=== PATIENT | male | born 1960 | race Caucasian/White ===

== ENCOUNTER → 2020-05-21 07:35 | Outpatient (CLI) | payer OTHER, SELFPAY ==
--- NOTE | ~2020-05-21 | US_ITS ---
US abdomen limited DATE: 05/21/2020 08:16 INDICATION: Abnormal serum liver enzyme levels TECHNIQUE: Real-time and color flow imaging of the abdomen, Doppler analysis COMPARISON: None FINDINGS: No hepatic or pancreatic space-occupying mass lesion is evident. There is nonspecific mild thickening of the gallbladder wall, measuring under 3 mm thickness. No gallstones are evident. Negati ve sonographic Cornejo's sign. The common bile duct measures up to 4.3 mm, within normal range. No hepatic or pancreatic space-occupying mass lesion is detected. Normal hepatopedal portal venous fl ow. There is atherosclerotic plaque of the abdominal aorta. IMPRESSION: Nonspecific mild thickening of the gallbladder wall; no gallstones or bile duct dilatatio n. Negative sonographic Cornejo's sign Reviewed, dictated and finalized at [facility]. Reviewed, dictated and finalized at location B. IMPRESSION: Nonspecific mild thickening of the gallbladder wall; no gallstones or bile duct dilatation. Negative sonographic Cornejo's sign
== END ==
PROVIDERS: PCP Family Medicine; Visit Provider Physician Assistant
DX: R74.8 Abnormal levels of other serum enzymes (principal)
CPT/HCPCS: 76705

== ENCOUNTER 2022-07-03 07:36 | Outpatient (CLI) | payer OTHER, SELFPAY ==
--- NOTE | 2022-07-15 19:43 | WPDHOMESLEEP ---
Sleep Study - Home Unattended Date of Study: 07/03/22 Ordering Provider: Sandeep Herman DO Interpreting Provider: Veronica Stephenson MD Home Sleep Study Type: Watch PAT Height: 1.6 m Weight: 58.967 kg Body Mass Index: 23.0 Neck Circumference (inches): 14.5 [place]: 2 Reason for Sleep Study Snoring, daytime fatigue, non-restorative sleep. Sleep History Jason Mckeon is a 62-year-old man with snoring which is occasionally loud enough that others complain about it. He rarely awakens at night with heartburn, belching or coughing. He does not awaken from sleep feeling short of breath. He rarely has trouble sleeping with a cold. He does not wake up gasping for breath at night or have breathing problems at night observed by others. He occasionally sweats excessively at night. He rarely notices his heart pounding or beating irregularly at night. He does not fall asleep during the day, does not fall asleep involuntarily or while driving. He does not have loss of muscle tone with strong emotion. He does not have daytime difficulties due to excessive sleepiness. 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 He does not feel paralyzed on waking or falling asleep. He does not have vivid dreamlike scenes upon awakening or falling asleep. Does not feel afraid to go to sleep. He rarely has nightmares. He occasionally remembers his dreams. He frequently has racing thoughts. He does not feel sad or depressed. He occasionally has anxiety. He rarely has muscular tension. He does not notice parts of his body jerking. He occasionally kicks at night. He occasionally has crawling and aching feelings in his legs. He does not have leg pain at night. He denies morning jaw pain. Does not grind his teeth at night. He occasionally is bothered by pain during the day. He is not awakened by pain at night. He occasionally wakes up feeling stiff in the morning with sore achy muscles. He does not wake up with pain in the neck and spine. His medical history includes paroxysmal atrial fibrillation, hyperlipidemia, hypertension second-degree AV block and cigarette smoking. Normal bedtime is 9:30 p.m. falling asleep within 15-30 minutes, typically waking 2-3 times at night to use the bathroom. He returns to sleep within 10 minutes. He wakes in the morning at 5:15 a.m.. On the weekends, bedtime is later, 10:30 p.m. and he wakes between 6:00 and 7:00 a.m.. He does not generally take naps. A short nap lasting 10 or 15 minutes is not refreshing. He is drowsy after waking for 1 hour. He feels better in the morning compared to other times of day. He never awakens feeling refreshed. He occasionally has a morning headache. Habits: Tobacco half pack per day. Caffeine 1 serving a day. Alcohol 6-8 servings a day. No recreational drugs. [facility] Past Medical History Medical History Alcohol use Elevated liver enzymes Frequent urination H/O atrial fibrillation without current medication H/O stroke without residual deficits H/O: CVA (cerebrovascular accident) Hemiparesis of left nondominant side due to cerebral infarction HTN (hypertension) Hyperkalemia Hyperlipidemia IFG (impaired fasting glucose) Smoking Family History Family History Mother Patient's mother is in good health Patient's mother is Father Patient's father is Social History Social History Social History: Smoking packs per day: 1 Smoking cigarettes per day: 20.0 Years smoked: 30 Smoking pack-years: 30.00 Smoking status: Current every day smoker Tobacco type: cigarettes Second hand tobacco smoke exposure: Yes Smoking end date: 10/19/12 Alcohol intake: current Drinks per week: 42 Alcohol use details: Pt drinks roughly around 6 drinks a day. Substance use: never Substance use type: does not use Gender identity (if verbali
[2022-07-15 19:49] VITALS: BMI 23.0
== END 2022-07-09 11:22 | disposition home or self-care (01) ==
PROVIDERS: PCP Family Medicine; Visit Provider Internal Medicine Cardiovascular Disease
DX: G47.10 Hypersomnia, unspecified (principal); R06.3 Periodic breathing
CPT/HCPCS: 95800

== ENCOUNTER 2022-08-14 13:20 | Outpatient (CLI) | payer OTHER, SELFPAY ==
--- NOTE | 2022-08-14 13:30 | ECHO_ITS ---
Patient Info Name: Jason Mckeon Age: 62 years : 1960 Gender: Male Ht: 63 in Wt: 130 lbs BSA: 1.63 m2 HR: 59 bpm BP: 147 / 97 mmHg Technical Quality: Good Exam Date: 08/14/2022 2:32 PM Exam Location: [facility] Patient Status: Outpatient Admit Date: 08/14/2022 Staff Ordering Physician: Sandeep Herman DO Heating And Ventilating Tender: Ty Sánchez RDCS Attending Provider: Sandeep Herman DO Referring Physician: Virgil ELY; Exam Type: CA echo doppler color flow Study Info Indications - sick sinus syndrome Complete two-dimensional, color flow and Doppler transthoracic echocardiogram is performed. Summary 1. Complete two-dimensional, color flow and Doppler transthoracic echocardiogram is performed. 2. Left ventricular chamber dimension is normal. 3. Left ventricular systolic function is normal, estimated at 60-65%. 4. The left ventricular diastolic function is grade I diastolic dysfunction. 5. E/e' 7 is not elevated. 6. Left atrial chamber dimension is mildly enlarged. 7. Right atrial chamber dimension is mildly enlarged. 8. There is mild tricuspid valve regurgitation. 9. No pulmonary hypertension, estimated pulmonary arterial systolic pressure is 28 mmHg. Left Ventricle E/e' 7 is not elevated. Left ventricular chamber dimension is normal. Left ventricular systolic function is normal, estimated at 60-65%. The left ventricular diastolic function is grade I diastolic dysfunction. Right Ventricle Right ventricular systolic function is normal and with normal TAPSE 2.1 cm. Right ventricular chamber dimension is normal. Left Atria Left atrial chamber dimension is mildly enlarged. Right Atria Right atrial chamber dimension is mildly enlarged. Aortic Valve The aortic valve is trileaflet. There is no aortic valve stenosis. There is no aortic valve regurgitation. Pulmonic Valve There is no pulmonic regurgitation. Mitral Valve There is no mitral valve stenosis. There is no mitral valve regurgitation. Tricuspid Valve There is mild tricuspid valve regurgitation. No pulmonary hypertension, estimated pulmonary arterial systolic pressure is 28 mmHg. Pericardium/Pleural There is no pericardial effusion. Inferior Vena Cava Normal inferior vena cava with >50% collapse upon inspiration consistent with normal right atrial pressure, 5 mmHg. Aorta The aortic root size at the sinus of Valsalva is normal. Left Ventricular Outflow Tract Name Value Normal LVOT 2D LVOT Diameter 2.0 cm LVOT Doppler LVOT Peak Gradient 4 mmHg LVOT Mean Gradient 3 mmHg LVOT VTI 22 cm LVOT VTI/AV VTI Ratio 0.9 LVOT Stroke Volume 66 ml LVOT CO 4.5 l/min LVOT CI 2.7 l/min/m2 Mitral Valve Name Value Normal MV Do
== END 2022-08-14 13:21 | disposition home or self-care (01) ==
LOC: ANHCARD 13:20
PROVIDERS: PCP Family Medicine; Visit Provider Internal Medicine Cardiovascular Disease
DX: I49.5 Sick sinus syndrome (principal); I36.1 Nonrheumatic tricuspid (valve) insufficiency
CPT/HCPCS: 93306

== ENCOUNTER 2022-09-05 02:09 | Day surgery (SDC) | payer OTHER, SELFPAY ==
[2022-09-04 14:07] VITALS: BMI 22.9
[2022-09-05] VITALS (21 sets, daily range): BP systolic 133–171; BP diastolic 77–93; PULSE 67–85; RESP 10–20; TEMP 36.7–37.2; O2SAT 95–98; BMI 21.7
--- NOTE | ~2022-09-05 | XR_ITS ---
XR chest 1V portable DATE: 09/05/2022 11:29 INDICATION: Pacemaker insertion TECHNIQUE: Portable AP chest on 09/05/2022 1126 hours COMPARISON: 08/12/2014 portable AP chest FINDINGS: Left-sided transvenous pacemaker device is present with leads overlying right atrial and ri ght ventricle. Normal heart size. Mild aortic arch calcification, mild aortic unfolding. No hilar or mediastinal enlargement. No pulmonary infiltrate or consolidation, pleural effusion or pulmonary vascular congestion or pneumo thorax. IMPRESSION: Left dual-lead pacemaker No active cardiopulmonary disease Reviewed, dictated and finalized at [facility]. Reviewed, dictated and finalized at location B. UTER PILOT
--- NOTE | ~2022-09-05 | XR_ITS ---
EXAMINATION: XR chest 2V DATE: 09/06/2022 10:52 INDICATION: 24 hour postpacemaker insertion TECHNIQUE: PA and lateral views of the chest were obtained. COMPARISON: Chest radiograph dated 09/05/2022 FINDINGS: Trace bilateral pleural effusions with minimal blunting at the posterior sulci but not the costophren ic angles. Mild linear atelectasis at the right costophrenic angle and medial left lung base. No othe r airspace opacities, pulmonary edema or pneumothorax. The cardiomediastinal silhouette is normal. Du al lead pacemaker seen with leads projecting over the expected locations of the right atrium and righ t ventricle. IMPRESSION: 1. Mild bibasilar atelectasis and trace bilateral pleural effusions. Reviewed, dictated and finalized at location A. SE MACHINE OPERATOR HELPER
--- NOTE | 2022-09-05 07:30 | ECG_ITS ---
Measurements Intervals [place] Rate: 73 P: 56 CT: 162 QRS: 56 QRSD: 93 T: 54 QT: 397 QTc: 439 Interpretive Statements SINUS RHYTHM NORMAL ECG NO PREVIOUS ECG AVAILABLE FOR COMPARISON Electronically Signed On 09-05-2022 12:28:58 HEALTH AND SAFETY MANAGER by Sandeep Herman D.O.
[2022-09-05 07:56] LABS: Basophils Percent Auto 0.4 % (0.2-1.2); Eosinophils Absolute Auto 0.1 K/mm3 (0-0.3); Eosinophils Percent Auto 1.5 % (0-4.4); Hematocrit 39.1 % (42.0-52.0); Hemoglobin 14.3 g/dL (14.0-18.0); Immature Granulocyte Absolute 0.03 K/mm3 (0.00-0.031); Immature Granulocyte Percent A 0.6 % (0-0.5); Lymphocytes Absolute Auto 1.64 K/mm3 (0.9-3.2); Lymphocytes Percent Auto 31.1 % (18.3-44.2); Mean Corpuscular HGB Conc 36.6 g/dl (32-36); Mean Corpuscular Hemoglobin 34.8 pg (26-34); Mean Corpuscular Volume 95.1 fl (80-100); Mean Platelet Volume 8.9 fl (7.4-10.4); Monocytes Absolute Auto 0.5 K/mm3 (0.1-0.6); Monocytes Percent Auto 9.3 % (2.6-8.5); Neutrophils Percent Auto 57.1 % (45.5-73.1); Platelet Count Result 192 k/mm3 (150-375); Red Blood Count 4.11 M/mm3 (4.6-6.20); Red Cell Distribution Width 13.2 % (11.5-14.5); White Blood Count 5.3 K/mm3 (4.5-10.0)
[2022-09-05] MEDS: SODIUM CHLORIDE 0.9% IV 500 ML 30 ML IV CONT (08:00)
[2022-09-05 08:03] LABS: INR 0.9
[2022-09-05 08:09] LABS: Anion Gap 17 mmol/L (8-16); Blood Urea Nitrogen 6 mg/dL (9-20); Calcium 9.4 mg/dL (8.4-10.2); Carbon Dioxide 22 mmol/L (22-30); Chloride 98 mmol/L (98-107); Estimated CRCL calculation 69 ml/min; Estimated Glomerular Filt Rate > 60; Glucose 97 mg/dL (65-110); Potassium 3.7 mmol/L (3.4-5.0); Sodium 137 mmol/L (137-145)
--- NOTE | 2022-09-05 09:21 | WPDMODSED ---
Moderate Sedation Note-Pt Data Patient Data Diagnosis: Sick sinus syndrome with syncope. Present Complaint: No complaints this morning Procedure to be performed/Plan: implantation permanent pacemaker Allergies Allergy/AdvReac Type Severity Reaction Status Date / Time ramipril AdvReac Mild hyperkalemi Verified 09/04/22 14:35 a Home Medications Medication Instructions Recorded Confirmed Type aspirin 81 mg tablet,delayed 81 mg PO DAILY #30 tabs 05/31/20 09/04/22 Rx release (Adult Low Dose Aspirin) amlodipine 10 mg tablet 10 mg PO DAILY #90 tabs 03/12/22 09/05/22 Rx pravastatin 20 mg tablet 20 mg PO DAILY #90 tabs 03/12/22 09/05/22 Rx omeprazole 40 mg capsule,delayed See Rx Instructions .Route 06/16/22 09/05/22 Rx release .COMPLEX #90 caps losartan 50 mg tablet 50 mg PO DAILY #90 tabs 07/25/22 09/05/22 Rx Current Medications: Active Medications Sodium Chloride (Normal Saline Iv) 500 mls @ 30 mls/hr IV CONT .[id number] ONE Stop: 09/06/22 00:09 Sedation/Anesthesia: No previous sedation/anesthesia problems (including family history). [facility] Past Medical History Medical History Alcohol use Elevated liver enzymes Frequent urination H/O atrial fibrillation without current medication H/O stroke without residual deficits H/O: CVA (cerebrovascular accident) Hemiparesis of left nondominant side due to cerebral infarction HTN (hypertension) Hyperkalemia Hyperlipidemia IFG (impaired fasting glucose) Smoking Family History Family History Mother Patient's mother is in good health Patient's mother is Father Patient's father is Social History Social History Social History: Smoking packs per day: 0.5 Smoking cigarettes per day: 10.0 Years smoked: 30 Smoking pack-years: 15.00 Smoking status: Current every day smoker Tobacco type: cigarettes Second hand tobacco smoke exposure: Yes Alcohol intake: current Drinks per week: 42 Alcohol use details: Pt drinks roughly around 6 drinks a day (beer) Substance use: former Substance use type: does not use and marijuana Last use: former marijuana use over 40 years ago. Living arrangements: with family Additional living arrangements comments: lives with Janene Gender identity (if verbalized by the patient): Male Sexual Orientation (if Verbalized by the Patient): Straight or Heterosexual Spiritual care concerns: No Mod Sed Physical Exam Physical Exam Pre Procedural Exam: Normal: Appearance, Airway, Lungs, Heart Size, Heart Rate, Heart Rhythm, Neuro Exam and Extremities Hours since solid foods: 12 Hours since liquid intake: 12 Mallampati Classification: class II Internal Medicine - PN: Obj Da Vital Signs Vital Signs: Vital Signs - 24 hr 09/05/22 07:40 Temperature 36.7 C Pulse Rate 67 Respiratory Rate 15 Blood Pressure 161/77 H Pulse Oximetry 97 Oxygen Delivery Room Air Meds/Results Medications: Active Medications Generic Name Dose Route Start Last Admin Trade Name Freq PRN Reason Stop Dose Admin Sodium Chloride 500 mls @ 30 mls/hr 09/05/22 07:30 Normal Saline Iv IV CONT 09/06/22 00:09 .[id number] ONE Labs CBC & Chem 7: 09/05/22 07:39 09/05/22 07:39 Labs: Laboratory Results - last 24 hr 09/05/22 09/05/22 09/05/22 07:39 07:39 07:39 WBC 5.3 RBC 4.11 L Hgb 14.3 Hct 39.1 L MCV 95.1 MCH 34.8 H MCHC 36.6 H RDW 13.2 Plt Count 192 MPV 8.9 Immature Gran % (Auto) 0.6 H Neut % (Auto) 57.1 Lymph % (Auto) 31.1 [place] % (Auto) 9.3 H Eos % (Auto) 1.5 Baso % (Auto) 0.4 Lymph # (Auto) 1.64 [place] # (Auto) 0.5 Eos # (Auto) 0.1 Baso # (Auto) 0.0 Abs Immat Gran (auto) 0.03 Absolute Neuts (auto) 3.0 Absolute Nucleated RBC 0.0
--- NOTE | 2022-09-05 10:35 | WPDCARDPROC ---
Cardiac Cath Procedure Note Date of procedure:: 09/05/22 Performing physician:: Jsaon Ramirez MD Indication:: syncope with sick sinus syndrome Brief clinical history:: this is a 62-year-old patient with episodes of syncope with evidence of significant asystolic pauses with sick sinus syndrome. According to the chart he also has a history of paroxysmal atrial fibrillation. Because of the sick sinus syndrome implantation of a permanent pacemaker has been recommended. Procedure Procedure performed:: Permanent dual-chamber pacemaker implantation Sedation/Medication given:: fentanyl 50 mg Versed 2 mg case start time 9:53 a.m. case end time 10:29 a.m. sedation provided by Lucia Hager RN, trained observer Access site:: left subclavian vein Estimated blood loss:: minimal Procedure note:: patient was brought to the cardiac catheterization lab in the postabsorptive state where the left anterior chest wall was prepped and draped in the normal fashion. Anesthesia was provided with 1% lidocaine infiltrated inferior to the clavicle. An incision was then made about 1 in below the clavicle from the midclavicular line to the deltopectoral groove. Using sharp and blunt dissection the subcutaneous tissue was to the level of the prepectoral fascia. Electrocautery was used to provide cutaneous hemostasis. Using blunt dissection a pacemaker pocket was created inferior to the incision along the fascial plane. an antibiotic soaked sponge was then placed into the pocket and then attention was turned to vascular access. Using 2 6 Turkmen safe sheaths the puncture was made of the left subclavian vein using the modified Seldinger technique and 2 separate punctures were made and the sheaths were placed into the venous circulation. Following this the pacemaker leads detailed below were placed into the venous circulation in the sheath were peeled back. Attention was then turned to the ventricular lead the stylet was withdrawn a 3 cc syringe was used to fashion a J-tip on the stylet it was then directed through right ventricle out to the pulmonary artery position and this J-tip stylet was withdrawn. A straight stylet was placed into the lead was withdrawn and placed into the apex of the right ventricle. The fixation screw was deployed and using the analyzer appropriate pacing and sensing to performance was demonstrated and christian stimulation showed no sign of extracardiac stimulation. Attention was then turned to the atrial lead. The stylet was withdrawn and a preformed J tip stylet was placed into the lead was positioned to the right atrial appendage and the fixation screw was deployed upon withdrawal of the stylet the lead tip was fixed into position and using the analyzer this lead was then tested with appropriate pacing and sensing performance and no sign of extracardiac stimulation with a 10 pole stimulus. Following this the leads were secured to the base of the pocket using the suture sleeves and 2-0 silk ties. The retained sponge was removed and the pocket was irrigated with antibiotic infused saline. The pacemaker generator detailed below was then connected to the leads using the torque wrench in the entire assembly was placed into the newly created pocket which was then closed in layers. I used 3-0 Vicryl in an interrupted fashion for the subcutaneous tissue and 4-0 Vicryl in a running subcuticular fashion for the skin. The wound was dressed with an Aquacel dressing the left arm placed in her immobilizer postop antibiotics chest x-ray and ECG were ordered. Procedure was well tolerated and uncomplicated. Findings:: Patient received a Biotronik dual-chamber pacemaker model Edora 8 DR-T serial number [id number]. Device is programmed in the DDD/CLS mode lower rate limit 60 upper rate limit 130. The atrial lead is a Biotronik screw-in bipolar lead model Solia S 53 serial number [id number]. P-waves are sensed at 1.1 mV threshold
--- NOTE | 2022-09-05 11:40 | SUR.PHASEII ---
RETURNED TO [employer] 7 POST L. UPPER CHEST PPM INSERTION AT 1040. AQUACEL AG DRESSING TO SITE C/D/I. SITE WITHOUT REDNESS, SWELLING, DRAINAGE OR TENDERNESS. A&OX3. DENIES CP OR SOB ON ARRIVAL. REPOSITIONED IN BED. MONITOR ON. VSS. REVIEWED BEDREST ORDERS AND LIMITATION TO MOVEMENT L. ARM POST PPM. QUESTIONS ANSWERED. V/U OF ALL. POST OP EKG AND PCXR COMPLETED. IMMOBILIZER APPLIED TO L. ARM AT 1130. DR. WALSH HAS BEEN TO BEDSIDE. [employer] HAS SPOKEN TO PT AND AND BEDSIDE MONITOR GIVEN. END PHASE II RECOVERY AT 1140. PT. STATUS CHANGE TO EXTENDED RECOVERY AFTER OUTPATIENT PPM INSERTION AT 1141. REMAINS IN [employer] 7 AT THIS TIME. SEE PCS DOCUMENTATION FOR FURTHER CHARTING.
--- NOTE | 2022-09-05 11:41 | ADMGEN ---
This patient, Jason Mckeon, was admitted to [facility] 7 AT 1141 EXTENDED RECOVERY POST OUTPT. PPM INSERTION. PHASE II RECOVERY ENDED AT 1140. REMAINS IN DEVELOPMENT TECHNOLOGIST 7 AT THIS TIME WITH STATUS CHANGE TO EXTENDED RECOVERY/OBSERVATION AFTER OUTPATIENT PROCEDURE. Patient/family oriented to hospital policies and general routines including ID bracelet, bed and alarms, visiting hours, pain management, procedures, bathroom and other care routines, personal items, smoking policy, room service/diet, and visiting hours. Information on how to activate the Rapid Response Team has been discussed. Patient/Family are encouraged to report perceived risks to care and to ask questions if they do not understand what they are told or what they should do.
--- NOTE | 2022-09-05 14:05 | PC.NURSE ---
REPORT CALLED TO KUSHAL Caballero RN IN IMU. PT. TO TRANSFER TO [facility] IN IMU FOR DURATION OF STAY EXTENDED RECOVERY/OBSERVATION STATUS PT. AFTER OUTPATIENT PROCEDURE. PT. AND AWARE OF NEW ROOM NUMBER.
--- NOTE | 2022-09-05 14:25 | PC.NURSE ---
TRANSFERRED PT TO IMU 212 VIA BED ON MONITOR WITH ALL PERSONAL BELONGINGS AND PPM BEDSIDE MONITOR. IMMOBILIZER IS ON L. ARM. IVF'S INFUSING. DENIES CP OR SOB. L. UPPER CHEST DRESSING C/D/I. PRESSURE DRESSING INTACT. VOICES NO C/O. AT SIDE.
[2022-09-05] MEDS: SODIUM CHLORIDE 0.9% IV 1,000 ML 50 ML IV CONT (14:30)
[2022-09-06] VITALS (10 sets, daily range): BP systolic 139–178; BP diastolic 86–98; PULSE 60–81; RESP 18–20; TEMP 36.1–36.6; O2SAT 95–98
--- NOTE | 2022-09-06 06:43 | PC.NURSE ---
09/06/22 0635-Spoke with Heber from [employer] and he states that everything looks great with the Pt's pacemaker. Information to be faxed to [facility] and to Dr. Ramirez.
[2022-09-06] MEDS: PANTOPRAZOLE 40 MG TABLET PO (08:47)
[2022-09-06] MEDS: PRAVASTATIN SODIUM 20 MG TABLET PO (08:47)
[2022-09-06] MEDS: LOSARTAN POTASSIUM 50 MG TABLET PO (08:48)
[2022-09-06] MEDS: ASPIRIN 81 MG ENTERIC TABLET PO (08:48)
[2022-09-06] MEDS: amLODIPine BESYLATE 5 MG TABLET 10 MG PO (08:48)
--- NOTE | 2022-09-06 12:48 | PM.DS ---
DS: Admitting Diagnosis Discharge Date 09/06/2022 Admitting Diagnosis Bradycardia DS: Summary Hospital Course Reason for hospitalization: Pacemaker implantation Hospital Course: 62-year-old admitted for pacemaker implantation. Successful dual chamber Biotronik device was implanted. He stayed in the hospital overnight for observation purposes. Status at Discharge Cognitive/behavioral status at discharge: Good Time Spent with Patient Time attestation: Total time spent providing and/or coordinating discharge services: Less than 30 minutes Time spent: Less than 30 minutes Specific discharge activities: See below. Discharge diet: Heart healthy low-fat low-cholesterol low-salt diet Disposition to home Exam Narrative: Appears stated age Const: General: comfortable and no acute distress HENMT: Face/Nose/Sinus: Normal nares present Eyes: Sclera: sclerae normal Neck: Neck: supple Resp: Effort & Inspection: normal respiratory effort Auscultation: clear to auscultation bilaterally Cardio: Rate: regular rate Rhythm: regular rhythm GI: GI Palp: Yes Soft to palpation Auscultation: normal bowel sounds Skin: General skin exam: normal color Other: Pressure dressing removed. Outer bandage not removed. No hematoma. No significant pain. Neuro: Sensory Exam: normal sensation Extrem: General: normal to inspection Psych: Mental Status: mental status grossly normal DS: Data Procedures/Treatments: Successful dual chamber permanent pacemaker implantation with a Biotronik device on 09/05/2022 Imaging My impression: Chest x-ray 09/06/2022: No pneumothorax Device interrogation shows normal function device Discharge Plan Discharge Patient Disposition: Home, Self-Care Discharge Instructions: [facility] [address] [place] [address] DISCHARGE INSTRUCTIONS - POST PACEMAKER Activity 1. No driving until you are seen in the office for your incision check. 2. No lifting, pushing or pulling more than 5 pounds with affected arm for 1 MONTH 3. No lifting affected arm above shoulder height for 1 MONTH 4. Wear immobilizer/sling only if you are unable to remember the above activity restrictions. Recommend that it be worn at night. 5. You may shower AFTER you are seen for incision check but no tub baths, swimming pool or hot tub for 1MONTH Wound Care 1. Do not attempt to remove the Aquacel dressing. Leave dressing undisturbed until incision check at the office visit. Keep dressing dry. 2. When you are able to shower AFTER you are seen for your incision check in the office do not rub or scrub the incision. Pat dry after shower. NO lotions, powders, creams or ointments are to be applied to the incision 3. A small amount of tenderness, puffiness and bruising around the site is normal. Call if any significant pain, drainage, swelling, or redness around the site 4. Woman: Wear a bra to support the breast tissue and avoid pulling on the incision. Pad the bra strap if necessary with soft smooth cloth. *For any other questions please call the office at [phone]. Office hours are 8AM 4:30PM Thursday through Thursday. Patient Instructions: Moderate Sedation (DC), Pacemaker (DC) Stand Alone Forms: General Discharge Instructions Follow-up/Referrals: Jason Ramirez MD [Physician] - (You have an incision and device check on 09/15/22 at 1:00. Please arrive at 12:45. ) Discharge Medications: No Action
== END 2022-09-06 13:48 | disposition home or self-care (01) ==
LOC: ANHCATHLAB 07:23 → ANHCPC 13:42 → ANHIMU 15:58
PROVIDERS: PCP Family Medicine; Visit Provider Specialist
PROC: 0JH606Z Insertion of Pacemaker, Dual Chamber into Chest Subcutaneous Tissue and Fascia, Open Approach (ICD-10-PCS; CPT 33208; principal; 2022-09-05 09:00)
DX: I49.5 Sick sinus syndrome (principal); I10 Essential (primary) hypertension; E78.5 Hyperlipidemia, unspecified; I69.354 Hemiplegia and hemiparesis following cerebral infarction affecting left non-dominant side; Z79.82 Long term (current) use of aspirin; F17.210 Nicotine dependence, cigarettes, uncomplicated
CPT/HCPCS: 33208; 36415; 71045; 71046; 80048; 85025; 85610; 93005; A9270; C1779; C1785; J0690; J2250; J3010; J7030; J7040

== ENCOUNTER → 2022-11-11 12:36 | Outpatient (CLI) | payer OTHER, SELFPAY ==
--- NOTE | ~2022-11-11 | CT_ITS ---
CT Scan of the Chest without Contrast: Clinical Indication: Lung cancer screening, nicotine dependence Technique: Contiguous sections were acquired throughout the chest without intravenous contrast. Dose reduction technique was used on this scan by utilizing automated exposure control and iterative recon struction technique. The dose-length product (DLP) was 54.47 mGy-cm. COMPARISON: 08/24/2019 Findings: There is no evidence of any significant mediastinal, hilar or axillary lymphadenopathy. Pacemaker dev ice present. Coronary artery calcifications present. There is no evidence of pleural or pericardial effusion. Stable 2 mm left lower lobe pulmonary nodule. No other significant pulmonary nodule seen. Images through the upper abdomen reveal no abnormalities. Impression: Lung-RADS 2: Benign. Annual [address] recommended. No change from prior exam. Reviewed, dictated and finalized at [facility]. RAGE SALES CONSULTANT Impression: Lung-RADS 2: Benign. Annual [address] recommended. No change from prior exam.
== END ==
PROVIDERS: PCP Physician Assistant; Visit Provider Physician Assistant
DX: Z12.2 Encounter for screening for malignant neoplasm of respiratory organs (principal); F17.210 Nicotine dependence, cigarettes, uncomplicated
CPT/HCPCS: 71271

== ENCOUNTER 2024-02-29 01:10 | Day surgery (SDC) | payer OTHER, SELFPAY ==
[2024-02-15 12:28] VITALS: BMI 22.3
[2024-02-29 09:24] VITALS: BP 133/92; PULSE 87; RESP 18; TEMP 36.1; O2SAT 100
[2024-02-29] MEDS: LACTATED RINGERS 1,000 ML 150 ML IV CONT (09:33)
--- NOTE | 2024-02-29 09:46 | WPDANESEPPF ---
Anes - Initial Pre Proc Eval Procedure: Operation Date: 02/29/24 10:00 Proposed Procedures p Colonoscopy - Aydin Patton MD Date/Time: 02/29/24 09:46 Surgeon: Aydin Patton MD Pre Op Diagnosis: hx colon polyps Patient Data Age: 63 Gender: M Height: 1.63 m Weight: 50.7 kg Last Vital Signs Temp 97 F L 02/29/24 09:24 Pulse 87 02/29/24 09:24 Resp 18 02/29/24 09:24 BP 133/92 H 02/29/24 09:24 Pulse Ox 100 02/29/24 09:24 O2 Del Method Room Air 02/29/24 09:24 Allergies Allergy/AdvReac Type Severity Reaction Status Date / Time ramipril AdvReac Mild hyperkalemi Verified 02/29/24 09:24 a Home Medications Medication Instructions Recorded Confirmed Type aspirin 81 mg tablet,delayed 81 mg PO DAILY #30 tabs 05/31/20 02/15/24 Rx release (Adult Low Dose Aspirin) amlodipine 10 mg tablet 10 mg PO DAILY #90 tabs 10/06/23 02/15/24 Rx omeprazole 40 mg capsule,delayed See Rx Instructions .Route 10/06/23 02/15/24 Rx release .COMPLEX #90 caps pravastatin 20 mg tablet 20 mg PO DAILY #90 tabs 10/06/23 02/15/24 Rx losartan 100 mg tablet 100 mg PO DAILY #90 tabs 12/16/23 02/15/24 Rx hydralazine 25 mg tablet 25 mg PO BID #60 tabs 01/06/24 02/15/24 Rx Patient hx anesthesia problems: none Family hx anesthesia problems: none Results Review: All pre-operative results and documents have been reviewed as part of the pre-operative evaluation. [facility] Past Medical History Medical History Alcohol use Elevated liver enzymes Frequent urination H/O atrial fibrillation without current medication H/O stroke without residual deficits H/O: CVA (cerebrovascular accident) Hemiparesis of left nondominant side due to cerebral infarction HTN (hypertension) Hyperkalemia Hyperlipidemia IFG (impaired fasting glucose) Smoking Surgical History Surgical History Status cardiac pacemaker Family History Family History Mother Patient's mother is in good health Patient's mother is Father Patient's father is Social History Social History Social History: Smoking packs per day: 0.5 Smoking cigarettes per day: 10.0 Years smoked: 48 Smoking pack-years: 24.00 Smoking status: Current every day smoker Tobacco type: cigarettes and e-cigarettes/vaping Second hand tobacco smoke exposure: Yes Additional smoking assessment comments: SMOKES AND VAPES Alcohol intake: current Drinks per week: 42 Alcohol use details: BEER Substance use: never Substance use type: does not use Last use: former marijuana use over 40 years ago. Do You Feel Safe in your Home?: Yes Lack of Transportation: No Lack of Food: Sometimes True Current Housing: I Have Housing Concerned About Future Housing: No Difficulty Paying Gas/Electric Bills: No Difficulty Paying for Meds: No Currently Unemployed: No Education: Decline to Answer Difficulty w/ Childcare or Family Care: No Living arrangements: with family Additional living arrangements comments: lives with Janene Occupation/Education: occupation Gender identity (if verbalized by the patient): Male Sexual Orientation (if Verbalized by the Patient): Straight or Heterosexual Spiritual care concerns: No Anes - Eval Final PreProcedure Day of Procedure 02/29/24 09:46 Patient weight: normal Heart: irregular rhythm Lungs: clear to auscultation Airway: Mallampati scale class II Neurological: alert and oriented Last oral intake: >/= 8 hours ASA classification: III Emergent: no Anesthetic plan: proceed Anesthesia type and monitoring: general GIVS and standard monitoring Results Review: All pre-operative results and documents have been reviewed as part of the pre-operative evaluation. Informed Cons
--- NOTE | 2024-02-29 09:52 | PM.HPGS ---
History of Present Illness History of Present Illness Consent: Risks, benefits, and alternatives have been discussed and questions answered. Patient agrees to proceed with procedure. Chief complaint: hx colon polyps Narrative: Jason Mckeon is a 63 year old male with colon polyp in 2018 Review of Systems Review of Systems: All systems reviewed & are unremarkable except as noted in HPI and below PMFSH Past Medical History Medical History Adenomatous colon polyp Alcohol use Elevated liver enzymes Frequent urination H/O atrial fibrillation without current medication H/O stroke without residual deficits H/O: CVA (cerebrovascular accident) Hemiparesis of left nondominant side due to cerebral infarction HTN (hypertension) Hyperkalemia Hyperlipidemia IFG (impaired fasting glucose) Smoking Surgical History Surgical History Status cardiac pacemaker Family History Family History Mother Patient's mother is in good health Patient's mother is Father Patient's father is Social History Social History Social History: Smoking packs per day: 0.5 Smoking cigarettes per day: 10.0 Years smoked: 48 Smoking pack-years: 24.00 Smoking status: Current every day smoker Tobacco type: cigarettes and e-cigarettes/vaping Second hand tobacco smoke exposure: Yes Additional smoking assessment comments: SMOKES AND VAPES Alcohol intake: current Drinks per week: 42 Alcohol use details: BEER Substance use: never Substance use type: does not use Last use: former marijuana use over 40 years ago. Do You Feel Safe in your Home?: Yes Lack of Transportation: No Lack of Food: Sometimes True Current Housing: I Have Housing Concerned About Future Housing: No Difficulty Paying Gas/Electric Bills: No Difficulty Paying for Meds: No Currently Unemployed: No Education: Decline to Answer Difficulty w/ Childcare or Family Care: No Living arrangements: with family Additional living arrangements comments: lives with , Janene Occupation/Education: occupation Gender identity (if verbalized by the patient): Male Sexual Orientation (if Verbalized by the Patient): Straight or Heterosexual Spiritual care concerns: No Meds Home Medications and Allergies Home Medications Medication Instructions Recorded Confirmed Type aspirin 81 mg tablet,delayed 81 mg PO DAILY #30 tabs 05/31/20 02/15/24 Rx release (Adult Low Dose Aspirin) amlodipine 10 mg tablet 10 mg PO DAILY #90 tabs 10/06/23 02/15/24 Rx omeprazole 40 mg capsule,delayed See Rx Instructions .Route 10/06/23 02/15/24 Rx release .COMPLEX #90 caps pravastatin 20 mg tablet 20 mg PO DAILY #90 tabs 10/06/23 02/15/24 Rx losartan 100 mg tablet 100 mg PO DAILY #90 tabs 12/16/23 02/15/24 Rx hydralazine 25 mg tablet 25 mg PO BID #60 tabs 01/06/24 02/15/24 Rx Allergies Allergy/AdvReac Type Severity Reaction Status Date / Time ramipril AdvReac Mild hyperkalemi Verified 02/29/24 09:24 a Vital Signs Vital Signs - 24 hr 02/29/24 09:24 Temperature 97 F L Pulse Rate 87 Respiratory Rate 18 Blood Pressure 133/92 H Pulse Oximetry 100 Oxygen Delivery Room Air Exam Const: General: comfortable and no acute distress HENMT: Face/Nose/Sinus: Normal nares present Eyes: General: appearance normal, both eyes and all related structures Neck: Neck: no JVD Resp: Auscultation: clear to auscultation bilaterally Cardio: Rate: regular rate Rhythm: regular rhythm GI: Inspection: non-distended GI Palp: Yes Soft to palpation Skin: General skin exam: normal color Neuro: General: gait normal Speech: normal speech Extrem: General: normal to inspection Psych: Mental Status: mental status grossly normal Assessment and Plan
[2024-02-29 10:28] VITALS: BP 128/80; PULSE 70; RESP 13; O2SAT 100
[2024-02-29 10:38] VITALS: BP 120/73; PULSE 73; RESP 25; O2SAT 100
[2024-02-29 10:48] VITALS: BP 122/64; PULSE 69; RESP 16; O2SAT 100
== END 2024-02-29 11:11 | disposition home or self-care (01) ==
PROVIDERS: PCP Family Medicine; Visit Provider Internal Medicine Gastroenterology
PROC: 0DJD8ZZ Inspection of Lower Intestinal Tract, Via Natural or Artificial Opening Endoscopic (ICD-10-PCS; CPT 45378; principal; 2024-02-29 10:00)
DX: Z12.11 Encounter for screening for malignant neoplasm of colon (principal); D12.2 Benign neoplasm of ascending colon; D12.3 Benign neoplasm of transverse colon; D12.5 Benign neoplasm of sigmoid colon; K64.4 Residual hemorrhoidal skin tags; I10 Essential (primary) hypertension; E78.5 Hyperlipidemia, unspecified; E87.5 Hyperkalemia; R35.0 Frequency of micturition; G81.94 Hemiplegia, unspecified affecting left nondominant side; F17.210 Nicotine dependence, cigarettes, uncomplicated; Z79.82 Long term (current) use of aspirin; Z95.0 Presence of cardiac pacemaker; Z86.010 Personal history of colon polyps; Z86.73 Personal history of transient ischemic attack (TIA), and cerebral infarction without residual deficits; Z86.79 Personal history of other diseases of the circulatory system
CPT/HCPCS: 45385; 88305; J2704; J7120

== ENCOUNTER 2025-01-10 15:04 | Outpatient (CLI) | payer OTHER, SELFPAY ==
--- NOTE | ~2025-01-10 | CT_ITS ---
EXAMINATION: CT lung screening DATE: 01/10/2025 15:31 INDICATION: Lung cancer screening. Nicotine dependence. TECHNIQUE: Computed tomography (CT) of the chest was performed without intravenous contrast. The dose -length product was 94.27 mGy-cm. Automated exposure control and iterative reconstruction technique w ere employed. COMPARISON: CT dated 11/11/2022 FINDINGS: There is atherosclerosis of the aorta and coronary arteries. No significant pleural or kassy cardial effusion. There are nonobstructing left renal stones. There are renal arterial calcifications . Gallbladder is contracted. There is stable right upper lobe scarring. Stable 2 mm left lower lobe nodule. No endobronchial lesio ns. Dependent atelectasis. There is atherosclerosis with stenosis at the origins of the celiac axis, SMA and renal arteries. Moderate thoracic spondylosis. No focal lytic or blastic lesions are seen. Th ere is levoscoliosis of the thoracic spine with moderate spondylosis. IMPRESSION: 1. Lung-RADS category 2: Benign appearance or behavior. Continue annual screening with noncontrast lo w-dose chest CT in 12 months. Reviewed, dictated and finalized at location A. IMPRESSION: 1. Lung-RADS category 2: Benign appearance or behavior. Continue annual screeni ng with noncontrast low-dose chest CT in 12 months.
--- OUTSIDE RECORDS SUMMARY | 2025-01-10 17:46 | XMS_ITS | Clinical Summary ---
Author Organization [facility] Address [facility] [place] [address] Care Team Providers Care Dehydration Unit Operator Name Role Phone Unavailable Primary Care Provider Unavailabl e Social History Tobacco Use Types Packs/Day Years Used Date Smoking Tobacco: Never Assessed Sex and Gender Information Value Date Recorded Sex Assigned at Not on file Legal Sex Male 6:45 PM CDT Gender Identity Not on file Sexual Orientation Not on file Plan of Treatment Health Maintenance Due Date Last Done Comments Colorectal Cancer Screening Colonoscopy (10 Years) 1960 Annual Physical 1964 Hepatitis C 1979 DTaP, Tdap and Td Vaccines ( 1 - Tdap) 1980 Zoster Vaccines (1 of 2) 2011 COVID-19 Vaccine (2023-2 5 season) 2024 Influenza Adult (#1) 2024 RSV Immunization or 60+ Years (1 - 1-dose 75+ series) 2036 Meningococcal B Vaccine Aged Out No l onger eligible based on patient's age to complete this topic Meningococcal Vaccine Aged Out No suzette mary eligible based on patient's age to complete this topic Pneumococcal Vaccine: Pediat rics (0 to 5 Years) and At-Risk Patients (6 to 64 Years) Aged Out No longer eligible b ased on patient's age to complete this topic RSV Immunizations Under 20 Months Aged Out No longer eligible based on patient's age to complete this topic
== END 2025-01-10 15:05 | disposition home or self-care (01) ==
LOC: ANHIMG 15:10
PROVIDERS: PCP Family Medicine; Visit Provider Family Medicine
DX: Z12.2 Encounter for screening for malignant neoplasm of respiratory organs (principal); F17.210 Nicotine dependence, cigarettes, uncomplicated
CPT/HCPCS: 71271

== ENCOUNTER 2025-03-17 00:46 | Day surgery (SDC) | payer OTHER, SELFPAY ==
[2025-03-09 14:29] VITALS: BMI 25.0
[2025-03-17 12:18] VITALS: BP 158/92; PULSE 94; RESP 18; TEMP 36; O2SAT 99; BMI 23.5
[2025-03-17] MEDS: LACTATED RINGERS 1,000 ML 150 ML IV CONT (12:27)
--- NOTE | 2025-03-17 12:46 | P.PNAN_ITS ---
Anes - Initial Pre Proc Eval Procedure: Operation Date: 03/17/25 13:30 Proposed Procedures p Colonoscopy - Young Valdez MD Date/Time: 03/17/25 12:46 Surgeon: Young Valdez MD Pre Op Diagnosis: Personal history of colon polyps, unspecified Patient Data Age: 64 Gender: M Height: 1.65 m Weight: 64.2 kg Last Vital Signs Temp 96.8 F L 03/17/25 12:18 Pulse 94 03/17/25 12:18 Resp 18 03/17/25 12:18 BP 158/92 H 03/17/25 12:18 Pulse Ox 99 03/17/25 12:18 O2 Del Method Room Air 03/17/25 12:18 Allergies Allergy/AdvReac Type Severity Reaction Status Date / Time ramipril AdvReac Mild hyperkalemi Verified 03/17/25 12:17 a Home Medications ?Medication ?Instructions ?Recorded ?Confirmed ?Type aspirin 81 mg tablet,delayed 81 mg PO DAILY #30 tabs 05/31/20 03/10/25 Rx release (Adult Low Dose Aspirin) amlodipine 10 mg tablet 10 mg PO DAILY #90 tabs 06/07/24 03/10/25 Rx omeprazole 40 mg capsule,delayed See Rx Instructions .Route 06/07/24 03/10/25 Rx release .COMPLEX #90 caps pravastatin 20 mg tablet 20 mg PO DAILY #90 tabs 06/07/24 03/10/25 Rx hydralazine 25 mg tablet See Rx Instructions .Route 08/31/24 03/10/25 Rx .COMPLEX #180 tabs losartan 100 mg tablet See Rx Instructions .Route 10/28/24 03/10/25 Rx .COMPLEX #90 tabs Patient hx anesthesia problems: none Family hx anesthesia problems: none Results Review: All pre-operative results and documents have been reviewed as part of the pre- operative evaluation. [facility] Past Medical History Medical History Adenomatous colon polyp H/O atrial fibrillation without current medication Frequent urination Hyperkalemia Elevated liver enzymes IFG (impaired fasting glucose) Alcohol use H/O stroke without residual deficits Hemiparesis of left nondominant side due to cerebral infarction H/O: CVA (cerebrovascular accident) Smoking Hyperlipidemia HTN (hypertension) Surgical History Surgical History Status cardiac pacemaker Family History Family History Mother Patient's mother is in good health Patient's mother is Father Patient's father is Social History Social History Social History: Smoking packs per day: 0.25 Smoking cigarettes per day: 5.0 Years smoked: 30 Smoking pack-years: 7.50 Smoking status: Current every day smoker Tobacco type: cigarettes Second hand tobacco smoke exposure: Yes Additional smoking assessment comments: SMOKES AND VAPES Alcohol intake: current Drinks per week: 12 Substance use: former Substance use type: marijuana Last use: former marijuana use over 40 years ago. Do You Feel Safe in your Home?: Yes Lack of Transportation: No Lack of Food: Sometimes True Current Housing: I Have Housing Concerned About Future Housing: No Difficulty Paying Gas/Electric Bills: No Difficulty Paying for Meds: No Currently Unemployed: YES Education: Decline to Answer Difficulty w/ Childcare or Family Care: No Living arrangements: with family Additional living arrangements comments: lives with , Janene Occupation/Education: retired Gender identity (if verbalized by the patient): Male Sexual Orientation (if Verbalized by the Patient): Straight or Heterosexual Spiritual care concerns: No Anes - Eval Final PreProcedure Day of Procedure 03/17/25 12:46 Patient weight: normal Lungs: normal air movement Airway: Mallampati scale class II Neurological: alert and oriented Last oral intake: >/= 8 hours ASA classification: III Emergent: no Anesthetic plan: proceed Anesthesia type and monitoring: general GIVS and standard monitoring Results Review: All pre-operative results and documents have been reviewed as part of the pre- operative evaluation. HTN, hx of Pafib, now w pacemaker 2021 functioning well, smoker 5-6 cigs/day. HTN, hx of CVA w L residual mainly, now w generalized weakness. Informed Consent: The patient's anesthetic plan and its attendant risks and benefits were discussed with the patient/family/POA. Questions were solicited and answers provided to the satisfaction of the patient/family/POA.
--- NOTE | 2025-03-17 13:41 | PM.IMHP ---
H&P: HPI History of Present Illness Date/Time: 03/17/25 13:41 Chief Complaint: History of colon polyps Narrative: The patient has a history of colonic polyps, the last colonoscopy was last year, finding 6 tubular adenomas with no dysplasia. Review of Systems Review of Systems: All systems reviewed & are unremarkable except as noted in HPI and below PMFSH Past Medical History Medical History Adenomatous colon polyp H/O atrial fibrillation without current medication Frequent urination Hyperkalemia Elevated liver enzymes IFG (impaired fasting glucose) Alcohol use H/O stroke without residual deficits Hemiparesis of left nondominant side due to cerebral infarction H/O: CVA (cerebrovascular accident) Smoking Hyperlipidemia HTN (hypertension) Surgical History Surgical History Status cardiac pacemaker Family History Family History Mother Patient's mother is in good health Patient's mother is Father Patient's father is Social History Social History Social History: Smoking packs per day: 0.25 Smoking cigarettes per day: 5.0 Years smoked: 30 Smoking pack-years: 7.50 Smoking status: Current every day smoker Tobacco type: cigarettes Second hand tobacco smoke exposure: Yes Additional smoking assessment comments: SMOKES AND VAPES Alcohol intake: current Drinks per week: 12 Substance use: former Substance use type: marijuana Last use: former marijuana use over 40 years ago. Do You Feel Safe in your Home?: Yes Lack of Transportation: No Lack of Food: Sometimes True Current Housing: I Have Housing Concerned About Future Housing: No Difficulty Paying Gas/Electric Bills: No Difficulty Paying for Meds: No Currently Unemployed: YES Education: Decline to Answer Difficulty w/ Childcare or Family Care: No Living arrangements: with family Additional living arrangements comments: lives with , Janene Occupation/Education: retired Gender identity (if verbalized by the patient): Male Sexual Orientation (if Verbalized by the Patient): Straight or Heterosexual Spiritual care concerns: No Meds Home Medications and Allergies Home Medications ?Medication ?Instructions ?Recorded ?Confirmed ?Type aspirin 81 mg tablet,delayed 81 mg PO DAILY #30 tabs 05/31/20 03/10/25 Rx release (Adult Low Dose Aspirin) amlodipine 10 mg tablet 10 mg PO DAILY #90 tabs 06/07/24 03/10/25 Rx omeprazole 40 mg capsule,delayed See Rx Instructions .Route 06/07/24 03/10/25 Rx release .COMPLEX #90 caps pravastatin 20 mg tablet 20 mg PO DAILY #90 tabs 06/07/24 03/10/25 Rx hydralazine 25 mg tablet See Rx Instructions .Route 08/31/24 03/10/25 Rx .COMPLEX #180 tabs losartan 100 mg tablet See Rx Instructions .Route 10/28/24 03/10/25 Rx .COMPLEX #90 tabs Allergies Allergy/AdvReac Type Severity Reaction Status Date / Time ramipril AdvReac Mild hyperkalemi Verified 03/17/25 12:17 a Vital Signs Vital Signs - 24 hr 03/17/25 12:18 Temperature 96.8 F L Pulse Rate 94 Respiratory Rate 18 Blood Pressure 158/92 H Pulse Oximetry 99 Oxygen Delivery Room Air Exam Const: General: cooperative and healthy appearing Resp: Effort & Inspection: normal respiratory effort and able to speak in complete sentences Auscultation: clear to auscultation bilaterally Cardio: Rate: regular rate Rhythm: regular rhythm GI: Inspection: normal to inspection GI Palp: No No hepatosplenomegaly present Auscultation: normal bowel sounds Rectal Exam: deferred Skin: General skin exam: normal color Psych: Appearance: grossly normal Mental Status: mental status grossly normal Assessment and Plan Assessment and plan (1) Adenomatous colon polyp: Code(s): D12.6 - Benign neoplasm of colon, unspecified Status: Acute Assessment and Plan: The patient is deemed a good candidate for the procedure. Consent signed. Will proceed.
--- NOTE | 2025-03-17 13:59 | S_PTH ---
PATIENT: Jason Mckeon LOC: [facility] U#:[id number] AGE/SX: 64/M ROOM: RE03/17/[address]: Young Valdez MD : 1960 BED: DIS: 03/17/2025 SPEC #: [id number] RECD: 03/20/25 07:29 STATUS: SHERRI REQ #: [id number] VELIA: 03/17/25 13:[address]: Young Valdez DEPT: [facility] Surgical RECD BY: Cherelle Thomas ENTERED: 03/20/25 07:29 SP TYPE: Surgical OTHR DR: Alfie Mathur MD Tissues: A - Colon Polypectomy Procedures: Hematoxylin and Eosin Stain Gross and Microscopic Level 4
[2025-03-17 14:00] VITALS: BP 118/74; PULSE 65; RESP 15; O2SAT 100
[2025-03-17 14:10] VITALS: BP 128/79; PULSE 68; RESP 16; O2SAT 100
[2025-03-17 14:20] VITALS: BP 146/92; PULSE 72; RESP 21; O2SAT 100
== END 2025-03-17 14:38 | disposition home or self-care (01) ==
PROVIDERS: PCP Family Medicine; Referring Provider Family Medicine; Visit Provider Internal Medicine Gastroenterology
PROC: 0DJD8ZZ Inspection of Lower Intestinal Tract, Via Natural or Artificial Opening Endoscopic (ICD-10-PCS; CPT 45378; principal; 2025-03-17 13:30)
DX: Z12.11 Encounter for screening for malignant neoplasm of colon (principal); D12.8 Benign neoplasm of rectum; F17.210 Nicotine dependence, cigarettes, uncomplicated; F17.290 Nicotine dependence, other tobacco product, uncomplicated
CPT/HCPCS: 45385; 88305; J2003; J2704; J7120

== ENCOUNTER 2025-04-06 08:52 | Outpatient (CLI) | payer OTHER, SELFPAY ==
--- NOTE | ~2025-04-06 | US_ITS ---
Ankle Brachial Index with Ultrasound Dopplers and Pulse Volume Recordings Technique: Pressures in the arm and lower extremity were obtained. Additionally, arterial and pulse v olume waveforms were obtained bilaterally. Findings: Segmental pressures Right upper thigh: 94 Right lower thigh: 95 Right calf: 62 Right posterior tibial: 63 Right dorsalis pedis: Not obtainable Left upper thigh: 111 Left lower thigh: 119 Left calf: 81 Left posterior tibial: 81 Left dorsalis pedis: 85 There are monophasic waveforms bilaterally. Unable to obtain dorsalis pedis signal on the right. ARMIN Right 0.45 Left 0.61 TBI Right 0.21 Left 0.32 Impression: Moderate to severe peripheral arterial disease on the right. Moderate peripheral arterial disease on the left. Probable diffuse disease within the right lower extremity, most significant below the knee. Probable focal disease within the distal superficial femoral artery/popliteal artery on the left. Reviewed, dictated and finalized at location A. Impression: Moderate to severe peripheral arterial disease on the right. Moderate peripheral arterial disease on the left. Probable diffuse disease within the right lower extremity, most significant bel ow the knee. Probable focal disease within the distal superficial femoral artery/popliteal a rtery on the left.
== END 2025-04-06 08:53 | disposition home or self-care (01) ==
PROVIDERS: PCP Family Medicine; Visit Provider Internal Medicine Cardiovascular Disease
DX: I73.89 Other specified peripheral vascular diseases (principal)
CPT/HCPCS: 93923